=== PATIENT | female | born 1985 | race Hispanic/Latino ===

== ENCOUNTER 2019-04-03 23:04 | Emergency (ER) | payer SELFPAY ==
[2019-04-04 00:09] LABS: Pregnancy Test - Urine (BHCG) POSITIVE (Negative); Pregu Control Background? CLEAR/WHITE (CLR/WHITE); Pregu Control Bar Appear? YES (CONTROL BAR); Specific Gravity 1.009 (1.002-1.036)
[2019-04-04 03:30] LABS: Bilirubin Negative (Negative); Blood, Urine Negative (Negative); Clarity Clear (Clear); Glucose, Urine (Dipstick) Normal (Negative); Leukocyte Negative Leu/uL (Negative); Nitrite Negative (Negative); Protein, Urine (Dipstick) Negative (Neg-Trace); Urobilinogen Normal mg/dL (Less than 2)
--- NOTE | 2019-04-04 08:22 | ULT ---
PRELIMINARY REPORT/[facility]/EMERGENCY AFTER HOURS PROCEDURE: EXAM: US First Trimester, Transabdominal EXAM DATE/TIME: 04/04/2019 12:33 AM CLINICAL HISTORY: 33 years old, female; Lmp or gestational age (in weeks): 01/28/19; Antepartum complications; Bleeding ; complicated by abdominal or pelvic pain; Lower; First trimester; ; Patient HX: Pe lvic cramping pain, vaginal spotting tonight TECHNIQUE: Imaging protocol: Real-time transabdominal obstetrical ultrasound of the maternal pelvis and a first trimester , less than 14 weeks 0 days, with image documentation. COMPARISON: No relevant prior studies available. FINDINGS: GESTATION: Gestation: Twin , likely diamniotic dichorionic. Twin A designated maternal left. Heart rate: Twin A heart rate 162 beats per minutes. Placenta: Small hypoechoic area suggesting small subchorionic hematoma to the right of the gestationa l sac. Amniotic fluid: Amniotic and chorionic fluid are normal for gestational age. BIOMETRY: Estimated gestational age: Estimated gestational age by crown rump length for twin A is 9 weeks and 6 days. Poth-Rump length: Twin A crown-rump length 3.1 cm. MATERNAL: Uterus: The uterus measures 12.5 x 7.4 x 9 cm. No uterine mass. Cervix: Normal appearance of the cervix. Right adnexa: No adnexal mass Left adnexa: No adnexal mass Intraperitoneal: No intraperitoneal free fluid. IMPRESSION: 1. Living twin intrauterine , likely diamniotic dichorionic. 2. Estimated gestational age for twin A by crown-rump length is 9 weeks and 6 days. This is concordan t with clinical age of 9 weeks and 6 days. 3. Likely small subchorionic hematoma on the right. EXAM: US First Trimester, Transabdominal. Additional Gestation. EXAM DATE/TIME: 04/04/2019 12:33 AM CLINICAL HISTORY: 33 years old, female; Lmp or gestational age (in weeks): 01/28/19; Antepartum complications; Bleeding ; complicated by abdominal or pelvic pain; Lower; First trimester; ; Patient HX: Pe lvic cramping pain, vaginal spotting tonight TECHNIQUE: Imaging protocol: Real-time transabdominal obstetrical ultrasound of the maternal pelvis and a first trimester with image documentation. Additional gestation was evaluated. COMPARISON: No relevant prior studies available. FINDINGS: Other findings: No adnexal masses. GESTATION: Multifetal identity: Twin B Gestation: Twin , likely diamniotic dichorionic. Twin B designated maternal right. Heart rate: heart rate for twin B is 189 beats per minute. Amnionicity and Chorionicity: Likely diamniotic dichorionic Placenta: Small hypoechoic area suggesting small subchorionic hematoma to the right of the gestationa l sac. Amniotic fluid: Amniotic and chorionic fluid are normal for gestational age. BIOMETRY: Estimated gestational age: Estimated gestational age by crown-rump length for twin B is 9 weeks and 5 days. Poth-Rump length: Twin B crown-rump length 2.84 cm. MATERNAL: Uterus: The uterus measures 12.5 x 7.4 x 9 cm. No uterine mass. Cervix: Normal appearance of the cervix. IMPRESSION: 1. Living twin intrauterine , likely diamniotic dichorionic. 2. Estimated gestational age for twin B by crown rump length is 9 weeks and 5 days. This is concordan t with clinical age of 9 weeks and 6 days. 3. Likely small subchorionic hematoma on the right. Thank you for allowing us to participate in the care of your patient. Dictated and Authenticated by: Saranya Gutierrez MD 04/04/2019 2:44 AM Central Time ([place] & [place]) FINAL REPORT EMERGENCY AFTER HOURS PELVIC ULTRASOUND: Date: 04/04/19 FINDINGS/IMPRESSION: I agree with the findings and impression given in the preliminary report per [facility] physician. There is a diamniotic dichorionic live twin intrauterine with estimated age of 9 weeks and 5 days. POS: CET
[2019-04-04 23:05] LABS: Chlamydia by PCR Not Detected (NotDetected); GC by PCR Not Detected (NotDetected)
== END 2019-04-04 03:39 | disposition home or self-care (01) ==
LOC: ERS 23:04
DX: O26.851 Spotting complicating pregnancy, first trimester (principal); O20.9 Hemorrhage in early pregnancy, unspecified; Z3A.09 9 weeks gestation of pregnancy
CPT/HCPCS: 36415; 76856; 81003; 81025; 84702; 86900; 86901; 87480; 87491; 87510; 87591; 87660; 93976

== ENCOUNTER 2019-05-04 18:59 | Emergency (ER) | payer SELFPAY ==
[2019-05-04 20:28] LABS: #Lymphocytes 2.2 thou/uL (1.20-3.40); #Monocytes 0.5 thou/uL (0.11-0.59); #Neutrophils 5.5 thou/uL (1.40-6.50); %Basophils 0.6 % (0.0-1.0); %Eosinophils 0.6 % (0.0-10.0); %Lymphocytes 26.8 % (21.0-51.0); %Monocytes 5.5 % (0.0-10.0); %Neutrophils 66.5 % (42.0-75.0); Hemoglobin 14.9 g/dL (12.0-16.0); Mean Corpuscular HGB CONC 35.8 g/dL (32.0-36.0); Mean Corpuscular Hemoglobin 32.3 pg (27.0-31.0); Mean Corpuscular Volume 90.4 fL (78.0-98.0); Mean Platelet Volume 6.5 fL (7.4-10.4); Platelet Count 333 thou/uL (130-400); Red Blood Cell (RBC) Count 4.61 mill/uL (4.20-5.40); White Blood Cell (WBC) Count 8.3 thou/uL (4.8-10.8)
--- NOTE | 2019-05-04 21:37 | ULT ---
PELVIC ULTRASOUND WITH DOPPLER: 05/04/19 HISTORY: Pelvic pain, abdominal pain. FINDINGS: A twin intrauterine gestation is seen. This appears diamniotic and dichorionic. The twin on the mater nal left is designated twin A and on the maternal right is twin B. The twin A crown-rump length measures 3.39 cm with an estimated gestational age of 10 weeks, 2 days a nd twin B also has a crown-rump length of 3.39 cm and estimated gestational age of 10 weeks, 2 days. No heart tones are seen in either gestation. The ovaries are normal. No free fluid is seen. No definite subchorionic hemorrhage is seen. IMPRESSION: Absence of heart tones in the twin intrauterine gestation. Findings are suspicious for de mise. Correlation with serial serum beta HCG levels and follow-up ultrasound is recommended. POS: ROXANNA
--- NOTE | 2019-05-05 01:25 | CON ---
DATE OF CONSULTATION: 05/04/2019 REQUEST PHYSICIAN: Dr. Pierre of emergency department. HISTORY OF PRESENT ILLNESS: A 33-year-old G6, P4-0-1-4 at approximately 15 weeks gestation with a known mono-di twin gestation, who presented today with vaginal bleeding. She reports that the bleeding has now stopped and she is no longer having any symptoms. However, ultrasound showed demise of both twins. Twins were measuring 10 weeks 2 days. REVIEW OF SYSTEMS: Negative for head, eyes, ears, nose, throat, cardiovascular, respiratory, GI, , neuropsych, musculoskeletal, skin, or constitutional symptoms other than mentioned above. PAST MEDICAL HISTORY: None. PAST SURGICAL HISTORY: D and C x1. MEDICATIONS: vitamins. ALLERGIES: NO KNOWN DRUG ALLERGIES. SOCIAL HISTORY: Negative for tobacco, alcohol, or drug abuse. PHYSICAL EXAMINATION: VITAL SIGNS: Blood pressure 147/78, pulse 75, respiratory rate 16, temperature 99, and O2 saturation 99% on room air. GENERAL: Awake, alert, no acute distress. Tearful. CHEST: Nonlabored breathing. ABDOMEN: Soft, nontender to palpation. PELVIC: Deferred, but performed prior by Dr. Pierre and reportedly had multiparous cervix with a small amount of dark blood and some mucus, but no active bleeding. ASSESSMENT AND PLAN: A 33-year-old, G6, P4-0-1-4 with a missed of mono -di twins. I discussed options including expectant management, admission to the hospital with Cytotec tonight versus D and C tomorrow and the patient opts for a D and C to be performed by Dr. Domingo tomorrow late morning. I discussed this with Dr. Domingo who agrees. Blood type is O positive. So no RhoGAM is indicated. The patient will arrive at the hospital at 1000 hours tomorrow, n.p.o. after midnight. Job ID: [id number] [facility]
== END 2019-05-04 23:20 | disposition home or self-care (01) ==
LOC: ERS 18:59
DX: O02.1 Missed abortion (principal)
CPT/HCPCS: 36415; 76856; 84702; 85025; 86900; 86901

== ENCOUNTER 2019-05-05 10:20 | Day surgery (SDC) | payer SELFPAY ==
[~2019-05-05 10:20] MED LIST: Dexamethasone 20 MG/5 ML VIAL ONE; Lidocaine 1% PF 5 ML VIAL ONE; Ondansetron PF 4 MG/2 ML Vial ONE; PROPOFOL 200 MG/20 ML VIAL ONE; Rocuronium Bromide 10 MG/ML (10ML VIAL) ONE; Succinylcholine Chloride 20 MG/ML 10 ml SYRINGE FS ONE
[2019-05-05] MEDS ORDERED: Sodium Chloride 0.9% 100 ML ONE (13:04)
[2019-05-05] MEDS ORDERED: Tranexamic Acid 1,000 MG/10 ML VIAL ONE (13:04)
[2019-05-05] MEDS ORDERED: Fentanyl 100 MCG/2 ML VIAL ONE (13:05)
[2019-05-05] MEDS ORDERED: Oxytocin 10 UNITS/ML VIAL ONE ×2 (14:01→14:03)
[2019-05-05] MEDS ORDERED: Papaverine 60 MG/2 ML VIAL ONE (14:03)
[2019-05-05] MEDS ORDERED: Misoprostol 200 MCG TAB ONE (14:12)
[2019-05-05] MEDS ORDERED: Ondansetron PF 4 MG/2 ML Vial SLOW IVP PRN (15:43)
[2019-05-05] MEDS ORDERED: HYDROcodone/Acetaminophen 5/325 mg Tablet PO PRN ×2 (15:44→15:45)
[2019-05-05] MEDS ORDERED: Morphine 4 MG/ML VIAL SLOW IVP PRN (15:44)
[2019-05-05] MEDS ORDERED: Doxycycline 100 MG CAP PO SCH (15:45)
[2019-05-05] MEDS ORDERED: Lactated Ringer's 1,000 ML IV SCH (15:45)
--- NOTE | 2019-05-05 18:03 | OP ---
DATE OF PROCEDURE: 05/05/2019 PREOPERATIVE DIAGNOSIS: Missed at 14 weeks of twins. POSTOPERATIVE DIAGNOSIS: Missed at 14 weeks of twins. PROCEDURE PERFORMED: Suction dilation and curettage. ANESTHESIA: General endotracheal. HOSPICE MUSIC THERAPY SURGEON: Sagar Steen, PGY-3. ESTIMATED BLOOD LOSS: 400 mL. IVF: 1 L of crystalloid. URINE OUTPUT: 150 mL of clear urine at the beginning. COMPLICATIONS: None. DRAINS: None. PATHOLOGY: Products of conception. FINDINGS: A 16-week size mobile uterus. Cervix was closed. There was a large amount of products of conception and upon sharp curettage, a gritty texture was noted to all uterine mazariegos. There was no active bleeding upon conclusion of the procedure, and the fundus was firm. OPERATIVE TECHNIQUE: The patient was taken to operating room, where general anesthesia was obtained without difficulty. The patient was prepped and draped in a sterile fashion in the dorsal lithotomy position in the [facility]. A speculum was placed in the vagina. The anterior lip of the cervix was grasped with a single-tooth tenaculum. The cervix was then dilated with Henry dilators to a #20. A 12-mm suction curette was chosen and assembled, and maximum suction pressure was set to 55 mmHg. The 12 mm was attempted to pass, but would not pass the internal os; therefore, the cervix was dilated with Hegar dilators and this allowed the 12 mm suction curette to pass. This was passed under ultrasound guidance into the uterus and using a circular motion, the products were suctioned out of the uterus, again while watching directly under ultrasound guidance. Several passes with the suction curette were performed. Then, the sharp curette was taken into the uterus under ultrasound guidance until a gritty texture was noted in all uterine mazariegos. The suction curette was again passed to remove any clots remaining products out of the uterus. There was minimal bleeding at this time. Pitocin was given 20 units in LR, and sharp curette was performed one last time followed by one more pass with the suction curette. The tenaculum was removed off the cervix. The cervix was then observed and no active bleeding was present. All instruments were removed out of the vagina. The fundus was massaged with bimanual massage and noted to be firm. Then, 800 mcg of Cytotec was placed in the rectum. The patient tolerated the procedure well. Sponge, lap, and needle counts were correct x2. The patient was taken to recovery room in stable condition. The patient received Ancef 2 g prior to the procedure. Job ID: [id number]
== END 2019-05-05 16:20 | disposition home or self-care (01) ==
LOC: SDC 10:20
PROVIDERS: ATTEND Student in an Organized Health Care Education/Training Program
PROC: 10D17Z9 Manual Extraction of Products of Conception, Retained, Via Natural or Artificial Opening (ICD-10-PCS; principal; 2019-05-05)
DX: O02.1 Missed abortion (principal)
CPT/HCPCS: 36415; 86850; 86900; 86901; 88305; J0690; J1100; J2001; J2405; J2440; J2590; J2704; J3010; J3490